=== PATIENT | female | born 1945 | race African-American/Black ===

== ENCOUNTER 2021-04-17 19:52 | Inpatient (IN) | payer OTHER ==
[~2021-04-17] VITALS: Ht 172.7 cm; Wt 55.3 kg
[2021-04-17 20:14] VITALS: BP 112/53
[2021-04-17 20:25] LABS: URINE BILIRUBIN NEGATIVE (Negative); URINE BLOOD 2+ (Negative); URINE CLARITY CLEAR; URINE COLOR YELLOW; URINE GLUCOSE-RANDOM* NEGATIVE (Negative); URINE KETONES NEGATIVE (Negative); URINE NITRITE-REFLEX NEGATIVE (Negative); URINE PROTEIN (DIPSTICK) 2+ (Negative)
[2021-04-17 20:27] LABS: URINE LEUKOCYTES-REFLEX 3+ (Negative)
[2021-04-17 20:34] LABS: BACTERIA-REFLEX >30 Many /HPF (None Seen); SQUAMOUS 0-3 Few /LPF (0-3); URINE RBC 3-10 Few /HPF (NONE SEEN); URINE WBC-REFLEX 6-15 Few /HPF (0-5)
[2021-04-17 20:35] LABS: CRYSTALS None Seen /LPF (None Seen); FINE GRANULAR CASTS 0-3 Few /LPF (None Seen)
[2021-04-17 21:18] LABS: ABSOLUTE NEUTROPHILS 8.5 thou/uL (1.4-8.2); CALCIUM 9.2 mg/dL (8.5-10.1); HEMATOCRIT 34.9 % (37.0-47.0); HEMOGLOBIN 11.2 gm/dL (12.0-15.0); LYMPHOCYTES 6.6 % (24.0-44.0); MCH 29.4 pg (26.0-34.0); MCHC 32.2 g/dL (28.0-37.0); MCV 91.2 fL (80.0-100.0); MONOCYTES 10.4 % (1.0-8.0); PLATELET COUNT 213 thou/uL (150-400); POTASSIUM 3.3 mmol/L (3.5-5.1); RBC 3.82 mil/uL (4.20-5.00); RDW 14.1 % (10.5-14.5); WBC 10.3 thou/uL (4.0-11.0)
[2021-04-17 21:29] LABS: ALBUMIN 2.9 g/dL (3.4-5.0); TOTAL BILIRUBIN 0.4 mg/dL (0.2-1.0); TOTAL PROTEIN 7.9 g/dL (6.4-8.2)
[2021-04-17 23:49] VITALS: BP 115/54
--- NOTE | 2021-04-18 01:19 | NUR ---
ADMISSON: PT ARRIVED ON UNIT FROM ED AT APPROX. 2345. VSS AFEBRILE BUT PT C/O OF CHILLS. PT IS EXTREMELY [place] AND UNABLE TO COMMUNICATE USING AUDITORY AIDS. PT HAS 1 HEARING AID SHE BROUGHT FROM HOME BUT IS UNABLE TO USE IT, STATING THAT "I HAVE PUS IN MY EAR SO THEY DON'T WORK". REQUIRES VISUAL AID/CUES USING WHITE BOARD. NO C/O OF PAIN, N/V. SKIN C/D/I. CURRENTLY ON 3L O2 NC AND SATS AT 92%, LUNGS SOUNDS WITH CRACKLES AND PT IS X1 ASSIST TO BSC AND IS IMPULSIVE AND IS REFUSING TO USE CALL LIGHT. EDUCATED PT ON USING CALL LIGHT BEFORE GETTING OUT OF BED FOR SAFETY. WILL CONTINUE TO MONITOR CLOSELY.
[2021-04-18 03:30] VITALS: BP 125/53
[2021-04-18 05:38] LABS: HEMATOCRIT 30.4 % (37.0-47.0); MCH 29.9 pg (26.0-34.0); MCHC 32.8 g/dL (28.0-37.0); MCV 91.3 fL (80.0-100.0); RBC 3.33 mil/uL (4.20-5.00); RDW 14.1 % (10.5-14.5); WBC 9.6 thou/uL (4.0-11.0)
[2021-04-18 06:11] LABS: CALCIUM 8.3 mg/dL (8.5-10.1); CREATININE 1.5 mg/dL (0.6-1.0)
[2021-04-18 08:21] VITALS: BP 120/64
--- NOTE | 2021-04-18 10:31 | EKG ---
[address] [address] ELECTROCARDIOGRAM REPORT Name: JEFFREY POOLE Room #: 351-P ADM IN M.R.#: [id number] Admission: 04/17/21 Attend Phys: Darryn Gibson MD Discharge: Date of : 47 Report #: [id number] [facility] ED Test Date: 2021-04-17 Test Time: 20:30:26 Pat Name: JEFFREY POOLE Department: Room: [facility] Gender: F Tong Hooker: TAY : 1945 Requested By: Miles Manzanares Order Number: [id number] MD: Abdelrahman Barnes Measurements Intervals [place] Rate: 122 P: 86 SC: 154 QRS: 6 QRSD: 137 T: 190 QT: 326 QTc: 465 Interpretive Statements Sinus tachycardia Left bundle branch block No previous ECG available for comparison Electronically Signed On 04-18-2021 10:30:52 CAPSULE FILLING MACHINE OPERATOR by Abdelrahman Barnes [email or web address] <ELECTRONICALLY SIGNED> By: Abdelrahman Barnes MD 04/18/21 1030 2030 2030 Abdelrahman Barnes MD /EPI
[2021-04-18 11:24] VITALS: BP 129/65
[2021-04-18 15:11] VITALS: BP 141/66
--- NOTE | 2021-04-18 21:53 | NUR ---
PT AWAKE ALERT RESTING IN BED. PT USING HEARING AIDE AND ABLE TO HEAR AND COMMUNICATE WITH STAFF. IVF INTACT. PT PROVIDED HS SNACK. LUNGS O2 NC AND CRACKLES IN BASES. BED ALARM ON.
[2021-04-19 03:05] LABS: GLYCOHEMOGLOBIN (HGB A1C) 5.5 % (4.8-5.6)
[2021-04-19 04:20] VITALS: BP 161/67
[2021-04-19 04:48] VITALS: BP 146/64
[2021-04-19 05:06] LABS: ALBUMIN 2.3 g/dL (3.4-5.0); CREATININE 1.4 mg/dL (0.6-1.0); DIRECT BILIRUBIN 0.2 mg/dL (<0.1-0.2); INR 0.95; PHOSPHORUS 3.4 mg/dL (2.5-4.9); POTASSIUM 4.9 mmol/L (3.5-5.1); PROTIME 10.4 Seconds (10.5-12.1); TOTAL BILIRUBIN 0.3 mg/dL (0.2-1.0)
[2021-04-19 05:07] LABS: HEMATOCRIT 34.1 % (37.0-47.0); HEMOGLOBIN 10.9 gm/dL (12.0-15.0); MCH 29.5 pg (26.0-34.0); MCHC 32.1 g/dL (28.0-37.0); MCV 91.8 fL (80.0-100.0); PLATELET COUNT 267 thou/uL (150-400); RBC 3.71 mil/uL (4.20-5.00); RDW 14.6 % (10.5-14.5); WBC 14.4 thou/uL (4.0-11.0)
[2021-04-19 07:22] VITALS: BP 156/76
[2021-04-19 11:15] VITALS: BP 149/61
[2021-04-19 13:15] LABS: ABSOLUTE NEUTROPHILS 11.8 thou/uL (1.4-8.2); METAMYELOCYTES 2 %
[2021-04-19 13:16] LABS: ANISOCYTOSIS 1+
[2021-04-19 16:06] LABS: HIV ANTIBODY Non Reactive (Non Reactive)
[2021-04-19 16:20] VITALS: BP 139/77
--- NOTE | 2021-04-19 17:59 | HC ---
[facility] [place] [address] CONSULTATION Name: JEFFREY POOLE Room #: 351- ADM IN M.R.#: [id number] Admission: 04/17/21 Attend Phys: Darryn Gibson MD Discharge: Date of : 47 Report #: [id number] THIS REPORT FOR: cc: LEILA - No family physician/PCP LEILA - No family physician/PCP Coy Fitch MD ~ DATE OF SERVICE: 04/18/2021 INFECTIOUS DISEASES CONSULTATION REASON FOR CONSULTATION: I was asked to evaluate concerning COVID-19 pneumonia. HISTORY OF PRESENT ILLNESS: The patient was a 75-year-old who presents to the Emergency Room with nonproductive cough, progressive shortness of breath, mild headache, loss of taste, mild nausea with occasional loose stool along with dysuria. Symptoms started about a week ago. She does not typically follow up with medical community. On presentation, she was hypoxic and found to be COVID-19 positive. Chest x-ray showed bilateral pulmonary infiltrates and CT scan of the abdomen and pelvis showed bladder wall thickening and multifocal bilateral basilar infiltrates. She is now on 4 liters of oxygen per nasal cannula. She is sitting up in bed. No pleuritic chest pain or hemoptysis. No palpitations or syncopal episodes. No abdominal pain. Still has some dysuria. No back pain. ALLERGIES: None known. MEDICATIONS: None prior to admission. FAMILY HISTORY: Diabetes. SOCIAL HISTORY: Smoker of cigarettes. No significant alcohol intake, no HIV risk factors. PAST MEDICAL HISTORY: Back surgery in the remote past. REVIEW OF SYSTEMS: A 14-point review of system was negative other than what has been described above. PHYSICAL EXAMINATION: GENERAL: She was afebrile and hemodynamically stable. She is alert, cooperative and pleasant. No acute distress, sitting up in her bed. SKIN: Without rash or decubitus. No palpable adenopathy. She was thin in stature. HEENT: Without scleral icterus. Mouth without mucositis. NECK: Supple. LUNGS: Few crackles in the bases bilaterally, most notable on the right. [facility] [address] [place] [address] CONSULTATION Name: JEFFREY POOLE Room #: 351-P [facility] IN M.R.#: [id number] Admission: 04/17/21 Attend Phys: Darryn Gibson MD Discharge: Date of : 47 Report #: [id number] HEART: Regular, without murmur, gallop or rub. ABDOMEN: Soft and nontender with no hepatosplenomegaly or mass. GENITAL AND RECTAL: Not performed. SPINE: Nontender with no CVA tenderness. EXTREMITIES: Without clubbing, cyanosis, or edema. NEUROLOGIC: Cranial nerves intact. Strength in the upper and lower extremities was symmetric and within normal limits. PSYCHIATRIC: Mood without anxiety. LABORATORY DATA: Reviewed. MICROBIOLOGY: Reviewed. IMAGING: Chest x-ray and a CT scan of the abdomen and pelvis reviewed. ASSESSMENT AND PLAN: 1. COVID-19 pneumonia with respiratory failure. 2. Cystitis. 3. Acute kidney injury. 4. Anemia. RECOMMENDATION: Continue anti-inflammatory antiviral therapy along with antibiotics, pending culture results. Follow serial laboratory studies and follow closely while on antiviral therapy and continue with COVID isolation and cardiopulmonary monitoring. <ELECTRONICALLY SIGNED> By: Coy Fitch MD 04/19/21 1759 [id number] [id number] Coy Fitch MD /nt
--- NOTE | 2021-04-19 20:08 | NUR ---
PT ORIENTED X 4. PT SLEEPING MOST OF SHIFT AFTER HAVING A RESTLESS NIGHT. NO COMPLAINTS OF PAIN. PT DENIES NEEDS AT THIS TIME, WILL CONTINUE TO MONITOR.
--- NOTE | 2021-04-19 22:08 | NUR ---
PT AWAKE ALERT SITTING UP IN CHAIR. STEADY GAIT FROM CHAIR TO BSC AND BACK. O2 PER NC, LUNGS DIMINISHED. IVF INTACT. PT TALKATIVE. STATING SHE MAY DC IN AM. 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 PT HAD HS SNACK. PT STATED HER SISTER IN DECEMBER FROM COVID. BED ALARM ON.
[2021-04-20 02:20] VITALS: BP 157/69
[2021-04-20 04:41] LABS: ALBUMIN 2.1 g/dL (3.4-5.0); CALCIUM 8.8 mg/dL (8.5-10.1); CREATININE 1.3 mg/dL (0.6-1.0); DIRECT BILIRUBIN 0.1 mg/dL (<0.1-0.2); PHOSPHORUS 3.2 mg/dL (2.5-4.9); POTASSIUM 4.8 mmol/L (3.5-5.1); TOTAL BILIRUBIN 0.3 mg/dL (0.2-1.0); TOTAL PROTEIN 6.3 g/dL (6.4-8.2)
[2021-04-20 07:29] VITALS: BP 135/69
[2021-04-20 10:49] VITALS: BP 126/54
[2021-04-20 15:00] VITALS: BP 110/42
--- NOTE | 2021-04-20 15:08 | NUR ---
INITIAL ASSESSMENT: SW reviewed chart and spoke with nursing and attending physician. Pt was admitted from home due to COVID pneumonia. Pt placed in Enhanced Isolation. Pt has received the [employer] COVID vaccination. Pt is afebrile and on 3L of O2. Pt is on IV abx, IV steroids and Remdesivir. Therapy has been ordered to assist with recommendations for discharge. SW placed call to pt's room. No answer. Per chart, pt is alert/orientated and lives at home with her . Prior to admission, pt was independent with ADLs. Pt may need HH and/or Home O2 at discharged. SW to follow up with pt to obtain assessment info and discuss discharge plan.
--- NOTE | 2021-04-20 16:50 | NUR ---
PT ORIENTED X 4. PT SLEEPING MOST OF SHIFT AGAIN TODAY. PT DENIES PAIN OR ANY NEEDS AT THIS TIME. WILL CONTINUE TO MONITOR.
[2021-04-20 19:08] VITALS: BP 124/56
--- NOTE | 2021-04-20 23:07 | NUR ---
PT UP IN CHAIR, PT WATCHING TV, TALKATIVE, STATED LOOKING FORWARD TO THE CHIEFS ON MONDAY. PT WASHING SELF UP. IV MEDS ATTACHED. O2 PER NC, LUNGS DIMINISHED. STEADY GAIT, FATIGUED ON EXERTION.
[2021-04-21 04:18] VITALS: BP 147/59
[2021-04-21 06:32] LABS: HEMATOCRIT 34.7 % (37.0-47.0); MCH 29.3 pg (26.0-34.0); MCHC 31.8 g/dL (28.0-37.0); MCV 92.2 fL (80.0-100.0); PLATELET COUNT 318 thou/uL (150-400); RBC 3.77 mil/uL (4.20-5.00); RDW 14.4 % (10.5-14.5); WBC 11.8 thou/uL (4.0-11.0)
[2021-04-21 07:05] LABS: ALBUMIN 2.1 g/dL (3.4-5.0); CALCIUM 8.8 mg/dL (8.5-10.1); CREATININE 1.3 mg/dL (0.6-1.0); DIRECT BILIRUBIN 0.2 mg/dL (<0.1-0.2); PHOSPHORUS 3.2 mg/dL (2.5-4.9); POTASSIUM 4.1 mmol/L (3.5-5.1); TOTAL BILIRUBIN 0.4 mg/dL (0.2-1.0); TOTAL PROTEIN 6.4 g/dL (6.4-8.2)
[2021-04-21 07:52] VITALS: BP 105/46
[2021-04-21 11:29] VITALS: BP 139/68
[2021-04-21 13:00] LABS: T-SPOT.TB Negative
[2021-04-21 14:26] LABS: ABSOLUTE NEUTROPHILS 8.4 thou/uL (1.4-8.2); METAMYELOCYTES 2 %
[2021-04-21 15:03] VITALS: BP 120/51
--- NOTE | 2021-04-21 15:55 | NUR ---
ISABEL reviewed chart and spoke with nursing and attending physician. Pt remains in Enhanced Isolation due to COVID. Pt is afebrile and on 2L of O2. Pt is on IV abx and IV steroids. Pt to complete course of Remdesivir tomorrow. PT has discharged pt. Will need rest/exercise oximetry ordered to evaluate for home O2. SW placed calls to pt's room. No answer. Plan is for pt to discharge home when medically stable. ISABEL is following to assist as needed with discharge planning.
[2021-04-21 19:30] VITALS: BP 133/63
--- NOTE | 2021-04-21 19:42 | NUR ---
RN ASSUMED PT'S CARE AT 0700-1900PM, PT IS A&OX4, BUT PT IS H&H , PT IS ON O2 3L/MIN/NC, PT'S O2SAT ANS VS ARE STABLE, PT IS CONTINUING IV ABX AND TREAT COVID MEDICATIONS. PT DENIES PAIN AT DAY SHIFT.
--- NOTE | 2021-04-22 02:57 | NUR ---
PT IS SLOWLY PROGRESSING TOWARD GOAL OF DISCHARGE. PT IS A&OX4 AND VERY HARD OF HEARING, BUT IS ABLE TO MAKE ALL WANTS AND NEEDS KNOWN TO STAFF. PT UP IN CHAIR THROUGHOUT THE NIGHT, PREFERS TO SLEEP IN CHAIR RATHER THAN IN THE BED. REMAINS ON 3L/NC WITH O2 SATS >95%. PT DENIES PAIN. CONTINUES ON IV ANTIBIOTICS AND REMDESIVIR. WILL CONTINUE TO OBSERVE FOR CHANGES.
[2021-04-22 03:45] VITALS: BP 121/60
[2021-04-22 07:12] LABS: CALCIUM 8.7 mg/dL (8.5-10.1); CREATININE 1.2 mg/dL (0.6-1.0); DIRECT BILIRUBIN 0.1 mg/dL (<0.1-0.2); PHOSPHORUS 3.8 mg/dL (2.5-4.9); POTASSIUM 4.3 mmol/L (3.5-5.1); TOTAL BILIRUBIN 0.3 mg/dL (0.2-1.0); TOTAL PROTEIN 6.1 g/dL (6.4-8.2)
[2021-04-22 07:22] VITALS: BP 122/55
[2021-04-22 11:10] VITALS: BP 122/55
[2021-04-22 11:16] VITALS: BP 149/68
--- NOTE | 2021-04-22 11:17 | NUR ---
DISCHARGE NOTE: ISABEL reviewed chart and spoke with nursing and attending physician. Pt remains in Enhanced Isolation due to COVID. Pt is afebrile and on 3L of O2. Pt is on IV steroids and will complete course of Remdesivir today. Attending physician states pt will discharge home today. ISABEL spoke with pt via phone. Introduced role of SW. Pt is very [place]. Pt states she is aware of discharge today and states that her will be here at noon to pick her up. SW explained that she will most likely not be ready for discharge by noon. Pt lives at home with her . Prior to admission, pt was independent with ADLs. No use of DME. No hx of HH services or post acute placement. Pt's PCP is Dr. Nancy Hamm. ISABEL provided options for HH. No preference voiced. ISABEL confirmed pt's home address and phone number. Pt's family is able to provide transportation home. ISABEL notified attending physician that a rest/exercise oximetry may be needed to determine if pt will need home O2. Awaiting for orders and discharge ppwk at this time. ISABEL notified [facility] of new referral. Contact info for HH placed in pt's discharge summary. ISABEL is following to finalize discharge plan.
[2021-04-22] MEDS ORDERED: VITAMIN D325 MC2 PO (11:57)
[2021-04-22] MEDS ORDERED: PROTONIX 20 MG20 M1 PO (11:57)
[2021-04-22] MEDS ORDERED: Nicotine Transdermal TRANSDERM (11:57)
[2021-04-22] MEDS ORDERED: PREDNISONE 20 M20 M1 PO (11:57)
[2021-04-22 12:16] VITALS: BP 122/55
--- NOTE | 2021-04-22 15:51 | NUR ---
DISCHARGE NOTE: GIVEN DISCHARGE INFORMATION AND SIGNED VERBAL CONSENT. SCRIPTS FAXED AND GIVEN ON PAPER. WENT OVER NEW MEDICATION LIST AND UPCOMING APPOINTMENTS. LINE D/C'D. ALL BELONGINGS WITH PT. PT FAMILY HERE AND WAITNG TO BE TAKEN HOME. HOME WITH HH. WILL CONTINUE TO MONITOR.
== END 2021-04-22 14:32 | disposition home health service (06) | DRG 871 ==
LOC: ER 19:52 → EROBS 23:25 → 3W 23:25
PROVIDERS: Emergency Medicine; Nurse Practitioner; Nurse Practitioner Family; Specialist; ADMIT Internal Medicine; ATTEND Internal Medicine
PROC: XW033E5 Introduction of Remdesivir Anti-infective into Peripheral Vein, Percutaneous Approach, New Technology Group 5 (ICD-10-PCS; principal; 2021-04-18)
DX: A41.9 Sepsis, unspecified organism (principal); U07.1 COVID-19; J96.01 Acute respiratory failure with hypoxia; J12.82 Pneumonia due to coronavirus disease 2019; N17.9 Acute kidney failure, unspecified; E46 Unspecified protein-calorie malnutrition; Z68.1 Body mass index [BMI] 19.9 or less, adult; N30.90 Cystitis, unspecified without hematuria; D64.9 Anemia, unspecified; F17.210 Nicotine dependence, cigarettes, uncomplicated; E87.6 Hypokalemia; R73.9 Hyperglycemia, unspecified; Z83.3 Family history of diabetes mellitus
CPT/HCPCS: 10879